=== PATIENT | female | born 1965 | race Caucasian/White ===

== ENCOUNTER 2017-09-16 10:06 | Inpatient (IN) | payer OTHER, MEDICAID ==
[~2017-09-16] VITALS: Ht 170.2 cm; Wt 115.2 kg
[~2017-09-16 10:06] MED LIST: ACTOS 45 MG45 MG PO; ANAFRANIL PO; ASPIR 8181 MG PO; BENTYL 20 MG TA20 M1 PO; BUTALB-APAP-CA1 EACH PO; CALCIUM 600 +1 EAC8 PO; CIPROFLOXACIN500 M1 PO; CRESTOR10 MG PO; DOXEPIN 25 MG C25 MG PO; EFFEXOR XR150 MG PO; FISH OIL 1,2001 EAC3 PO; FLAGYL500 MG PO; FLONASE 0.05%50 MCG NASAL; GEODON60 MG PO; IBUPROFEN 800800 M1 PO; IRON160 M1 PO; JANUMET 50-1,01 EACH PO; LIORESAL 10 MG10 MG PO; LOPID600 MG PO; MELATONIN 5 MG1 EAC1 PO; METFORMIN 500500 MG PO; MIDODRINE HCL10 MG PO; MOBIC15 MG PO; MULTIVITAMINS1 EAC7 PO; NORCO 10-325 T1 EACH PO; NORCO 5-325 TA1 EACH PO; PARAFON FORTE500 MG PO; PENICILLIN VK250 MG GT; PERCOCET 5-3251 EACH PO; PHENERGAN 25 MG25 M1 PO; PHENERGAN12.5 M2 RECTAL; POLYSPORIN OINT15 GM TP; PRILOSEC 20 MG20 MG PO; RISPERDAL 3 MG T3 M1 PO; SEROQUEL XR200 MG PO; SIMCOR PO; STARLIX60 MG PO; SUPER B COMPLE150 MG PO; TOPAMAX100 MG PO; TRAZODONE 150150 M1 PO; TRILEPTAL 300300 MG PO; TRILEPTAL600 MG PO; VISTARIL 25 MG25 M1 PO; VITAMIN E200 UNI4 PO; VITAMINC500 PO; XANAX XR2 MG PO; XANAX1 MG PO
[2017-09-16] MEDS ORDERED: ZANAFLEX2 MG PO (10:15)
[2017-09-16] MEDS ORDERED: FLAGYL500 MG PO (10:17)
[2017-09-16 10:55] LABS: ABSOLUTE EOSINOPHILS 0.1 thou/uL (0.0-0.7); ABSOLUTE LYMPHOCYTES 0.9 thou/uL (0.8-5.3); ABSOLUTE MONOCYTES 0.2 thou/uL (0.0-1.2); ABSOLUTE NEUTROPHILS 5.5 thou/uL (1.6-8.1); BASOPHILS 0.7 %; EOSINOPHILS 0.8 %; HEMATOCRIT 36.4 % (37.0-47.0); HEMOGLOBIN 12.2 gm/dL (12.0-15.0); LYMPHOCYTES 13.4 %; MCH 29.7 pg (26.0-34.0); MCHC 33.6 g/dL (28.0-37.0); MCV 88.2 fL (80.0-100.0); MONOCYTES 3.4 %; MPV 7.6 fl. (7.2-11.1); NUCLEATED RBCS 0 /100WBC; PLATELET COUNT* 180 thou/uL (150-400); POLYS 81.7 %; RBC 4.12 mil/uL (4.20-5.00); RDW-CV 13.8 % (10.5-14.5); WBC 6.8 thou/uL (4.0-11.0)
[2017-09-16 11:01] LABS: ANION GAP 7 mmol/L (7-16); BUN 10 mg/dL (7-18); CALCIUM 8.2 mg/dL (8.5-10.1); CHLORIDE 95 mmol/L (98-107); CO2 29 mmol/L (21-32); CREATININE 0.7 mg/dL (0.6-1.3); GLUCOSE 150 mg/dL (70-99); POTASSIUM 4.1 mmol/L (3.5-5.1); SODIUM 131 mmol/L (136-145)
[2017-09-16 11:11] LABS: ALBUMIN 3.4 g/dL (3.4-5.0); ALKALINE PHOSPHATASE 110 U/L (46-116); NT-PRO BRAIN NAT PEPTIDE 470 pg/mL (<300); SGOT 16 U/L (15-37); SGPT 16 U/L (30-65); TOTAL BILIRUBIN 0.3 mg/dL (<0.1-1.0); TOTAL PROTEIN 7.3 g/dL (6.4-8.2); TROPONIN-I LEVEL <0.06 ng/mL (<0.06)
[2017-09-16 11:22] LABS: BE 3.7 mmol/L (-2 to +3); HCO3 29.2 mmol/L (22.0-26.0); PCO2 48.3 mmHg (35.0-45.0)
[2017-09-16 11:24] LABS: PO2 54.2 mmHg (75.0-100.0)
[2017-09-16 14:00] LABS: INFLUENZA A ANTIGEN None Detected (None Detect); INFLUENZA B ANTIGEN None Detected (None Detect)
[2017-09-16 14:10] VITALS: BP 127/54
[2017-09-16 20:00] VITALS: BP 146/69
[2017-09-17] VITALS: BP 110/53
[2017-09-17 04:00] VITALS: BP 129/62
[2017-09-17 05:14] LABS: CALCIUM 7.8 mg/dL (8.5-10.1); CREATININE 0.6 mg/dL (0.6-1.3); MAGNESIUM 2.1 mg/dL (1.8-2.4); POTASSIUM 4.1 mmol/L (3.5-5.1)
[2017-09-17 05:18] LABS: ABSOLUTE LYMPHOCYTES 0.7 thou/uL (0.8-5.3); ABSOLUTE MONOCYTES 0.3 thou/uL (0.0-1.2); ABSOLUTE NEUTROPHILS 5.6 thou/uL (1.6-8.1); BASOPHILS 0.2 %; EOSINOPHILS 0.2 %; HEMATOCRIT 32.6 % (37.0-47.0); LYMPHOCYTES 10.5 %; MCHC 33.7 g/dL (28.0-37.0); MONOCYTES 4.3 %; MPV 7.6 fl. (7.2-11.1); NUCLEATED RBCS 0 /100WBC; PLATELET COUNT* 166 thou/uL (150-400); POLYS 84.8 %; RBC 3.66 mil/uL (4.20-5.00); RDW-CV 13.4 % (10.5-14.5); WBC 6.6 thou/uL (4.0-11.0)
[2017-09-17 08:30] VITALS: BP 143/73
[2017-09-17 09:47] LABS: BE 1.2 mmol/L (-2 to +3); HCO3 26.9 mmol/L (22.0-26.0); PCO2 47.2 mmHg (35.0-45.0); PO2 66.9 mmHg (75.0-100.0); pH 7.374 (7.340-7.450)
--- NOTE | 2017-09-17 14:12 | EKG ---
[place] [address] ELECTROCARDIOGRAM REPORT Name: ODILON ARMSTRONG Room: [address] ADM IN M.R.#: [id number] Admission: 09/16/17 Attend Phys: Trevor Segundo MD Discharge: Date of : 63 Report #: [id number] THIS REPORT FOR: //name// [facility] ED Test Date: 2017-09-16 Test Time: 10:18:19 Pat Name: ODILON NATHANIEL Department: Room: [facility] Gender: Patient Clerical Assistant: Arnulfo PEOPLES : 1965 Requested By: Delbert Haider Order Number: [id number] MD: Nitesh Cortez Measurements Intervals [place] Rate: 79 P: 70 [place]: 167 QRS: 54 QRSD: 101 T: 76 QT: 376 QTc: 432 Interpretive Statements Sinus rhythm Compared to ECG 01/07/2017 01:39:48 No significant changes Electronically Signed On 09-17-2017 14:12:46 PARKING ENFORCER by Nitesh Cortez [email or web address] <ELECTRONICALLY SIGNED> By: Nitesh Cortez MD, [facility] 09/17/17 1412 1018 1018 Nitesh Cortez MD, FACC /EPI
[2017-09-17 20:00] VITALS: BP 157/52
[2017-09-18 00:14] VITALS: BP 137/63
[2017-09-18 04:00] VITALS: BP 107/72
[2017-09-18 05:14] LABS: HEMATOCRIT 31.8 % (37.0-47.0); HEMOGLOBIN 10.9 gm/dL (12.0-15.0); MCH 29.4 pg (26.0-34.0); MCHC 34.3 g/dL (28.0-37.0); MCV 85.9 fL (80.0-100.0); MPV 7.4 fl. (7.2-11.1); NUCLEATED RBCS 0 /100WBC; PLATELET COUNT* 168 thou/uL (150-400); RDW-CV 13.4 % (10.5-14.5); WBC 7.2 thou/uL (4.0-11.0)
[2017-09-18 05:27] LABS: ALBUMIN 3.1 g/dL (3.4-5.0); CREATININE 0.6 mg/dL (0.6-1.3); POTASSIUM 4.4 mmol/L (3.5-5.1); TOTAL BILIRUBIN 0.3 mg/dL (<0.1-1.0); TOTAL PROTEIN 6.5 g/dL (6.4-8.2)
[2017-09-18 07:00] LABS: ABSOLUTE LYMPHOCYTES 0.7 thou/uL (0.8-5.3); ABSOLUTE MONOCYTES 0.1 thou/uL (0.0-1.2); ABSOLUTE NEUTROPHILS 6.3 thou/uL (1.6-8.1)
[2017-09-18 07:01] LABS: PLATELET ESTIMATE ADEQUATE; POLYCHROMASIA Occasional
[2017-09-18 08:00] VITALS: BP 149/76
[2017-09-18 11:30] VITALS: BP 167/84
[2017-09-18 16:22] VITALS: BP 157/70
[2017-09-18 20:00] VITALS: BP 146/71
[2017-09-19 00:51] VITALS: BP 146/67
[2017-09-19 04:00] VITALS: BP 144/68
[2017-09-19 04:56] LABS: ABSOLUTE EOSINOPHILS 0.1 thou/uL (0.0-0.7); ABSOLUTE LYMPHOCYTES 1.3 thou/uL (0.8-5.3); ABSOLUTE MONOCYTES 0.4 thou/uL (0.0-1.2); ABSOLUTE NEUTROPHILS 5.4 thou/uL (1.6-8.1); BASOPHILS 0.3 %; EOSINOPHILS 0.8 %; HEMATOCRIT 37.3 % (37.0-47.0); HEMOGLOBIN 12.8 gm/dL (12.0-15.0); LYMPHOCYTES 17.7 %; MCH 29.1 pg (26.0-34.0); MCHC 34.2 g/dL (28.0-37.0); MCV 85.2 fL (80.0-100.0); MPV 7.5 fl. (7.2-11.1); NUCLEATED RBCS 0 /100WBC; PLATELET COUNT* 206 thou/uL (150-400); POLYS 75.2 %; RBC 4.38 mil/uL (4.20-5.00); RDW-CV 13.4 % (10.5-14.5); WBC 7.1 thou/uL (4.0-11.0)
[2017-09-19 05:07] LABS: ALBUMIN 3.5 g/dL (3.4-5.0); CREATININE 0.5 mg/dL (0.6-1.3); MAGNESIUM 1.7 mg/dL (1.8-2.4); POTASSIUM 3.5 mmol/L (3.5-5.1); TOTAL BILIRUBIN 0.4 mg/dL (<0.1-1.0); TOTAL PROTEIN 7.2 g/dL (6.4-8.2)
[2017-09-19 07:50] VITALS: BP 133/63
[2017-09-19 12:46] VITALS: BP 158/81
[2017-09-19 16:00] VITALS: BP 148/71
[2017-09-19 20:00] VITALS: BP 149/76
[2017-09-20] VITALS: BP 134/58
[2017-09-20 04:00] VITALS: BP 117/57
[2017-09-20 08:00] VITALS: BP 126/63
[2017-09-20 11:30] VITALS: BP 131/59
[2017-09-20] MEDS ORDERED: PREDNISONE 10 M10 MG PO (14:26)
[2017-09-20] MEDS ORDERED: PROTONIX40 M1 PO (14:28)
[2017-09-20] MEDS ORDERED: LEVAQUIN 750 M750 MG PO (14:28)
[2017-09-20 14:35] VITALS: BP 131/59
--- NOTE | 2017-09-21 11:21 | CON ---
[address] [address] CONSULTATION Name: ODILON ARMSTRONG Room: [address] IN .R.#: [id number] Admission: 09/16/17 Attend Phys: Trevor Segundo MD Discharge: 09/20/17 Date of : 63 Report #: [id number] THIS REPORT FOR: //name// CC: Ayala Segundo REASON FOR CONSULTATION: Shortness of breath. HISTORY OF PRESENT ILLNESS: This is a 52-year-old female patient who had been a smoker since she was 11 years old. She follows with Dr. Manuel from [facility]. She has chronic respiratory failure secondary to COPD, on 3 liter oxygen at home, in addition to CPAP at night with oxygen. She presented to the hospital with 3 days history of feeling shortness of breath, cough, sputum production with wheezes. She denied any history of sick contact. She denied history of nasal discharge or obstruction. She denied history of sore throat. She is not sure if she had any fever or chills. She had no chest pain, no back pain, no change in bowel habits; however, she has have some lower abdominal pain. Upon hospitalization, she had to be placed on nonrebreather, and today, she is on several liters of oxygen. She still feels short of breath, although she is not producing much sputum, she feels congested. ALLERGIES: SULFA AND PROCHLORPERAZINE. HOME MEDICATIONS: She is on alprazolam, meloxicam, Prilosec, Topamax, Effexor, hydrocodone, midodrine, aspirin, melatonin, hydroxyzine, risperidone, and metronidazole. PAST MEDICAL HISTORY: Anxiety, panic disorder, bipolar disorder, OCD, borderline psychosis, diabetes mellitus, knee surgery for myalgia, IBS, diverticulitis, COPD, chronic respiratory failure, on home oxygen. SOCIAL HISTORY: She continues to smoke 3 packs of cigarettes per day and does not drink alcohol excessively, does not abuse drugs. REVIEW OF SYSTEMS: Twelve system review of the patient is negative other than as mentioned above. PHYSICAL EXAMINATION: VITAL SIGNS: On examination, she is on several liters oxygen with saturation more than 90%. Blood pressure 143/73, breathing 25 times a minute, temperature 36.4 GENERAL: Lying in bed, comfortable, speaks in full sentences. HEENT: Head normocephalic, atraumatic. Oral cavity, moist mucous membranes. Mallampati of 2-3. External ear looks healthy and normal. [place] [address] CONSULTATION Name: ODILON ARMSTRONG Room: [address]#: [id number] Admission: 09/16/17 Attend Phys: Trevor Segundo MD Discharge: 09/20/17 Date of : 63 Report #: [id number] NECK: Supple. No palpable lymph node. No palpable thyroid. Trachea is central. CHEST: Diminished air movement bilaterally, prolonged expiratory phase with wheezes, no tenderness, no deformities. HEART: S1, S2. No murmur, no gallop. ABDOMEN: Benign, soft, lax, nontender, positive bowel sounds, no masses felt. EXTREMITIES: Lower extremity, no edema. NEUROLOGIC: Moving 4 extremities spontaneously. No focal weakness. Cranial nerves grossly normal. MUSCULOSKELETAL: No deformities. No contracture. SKIN: Normal for age and race. LYMPHATICS: No palpable lymph node. LABORATORY DATA: White blood count 6.6, hemoglobin 11, platelet of 166. ABG 7.34/47/66, and this was done on 4-1/2 liters oxygen this morning. Her CT of the chest did not show PE, but showed extensive mediastinal lymphadenopathy. IMPRESSION: 1. Wltuj-wl-rquempv hypoxic respiratory failure. 2. Chronic obstructive pulmonary disease exacerbation. 3. Active smoker. 4. Mediastinal lymphadenopathy. PLAN: At this point, the patient will be on steroids, antibiotics, and she is also covered with antibiotics for her diverticulitis, schedule nebulization treatment. I did discuss with the patient, she is okay receiving steroids, although she was hesitant in the beginning, so I will reschedule steroids for her. Regarding the mediastinal lymphadenopathy, the patient follows with Dr. Manuel. She had been aware of it for at least 1-1/2 years. She had multiple sets of CT per her and she has a CT scan coming up soon. Also, she underwent bronchoscopy per the patient, she says she had been told that this has no malignancy. At this point, we will just get her over the acute decompensation, and she can continue to follow with Dr. Manuel as an outpatient. Thank you for the consult. <ELECTRONICALLY SIGNED> By: Maddy Donnelly MD 09/21/17 1121 1058 1341Dsydnie Donnelly MD /nt
== END 2017-09-20 15:29 | disposition home or self-care (01) | DRG 177 ==
LOC: M.ERS 10:06 → M.TBA-ER 13:24 → M.2W 13:24
PROVIDERS: Internal Medicine Critical Care Medicine; Physician Assistant; ADMIT Internal Medicine
DX: J15.6 Pneumonia due to other Gram-negative bacteria (principal); J96.21 Acute and chronic respiratory failure with hypoxia; J44.0 Chronic obstructive pulmonary disease with (acute) lower respiratory infection; J44.1 Chronic obstructive pulmonary disease with (acute) exacerbation; E22.2 Syndrome of inappropriate secretion of antidiuretic hormone; F41.0 Panic disorder [episodic paroxysmal anxiety]; J20.9 Acute bronchitis, unspecified; R59.1 Generalized enlarged lymph nodes; F31.9 Bipolar disorder, unspecified; E11.9 Type 2 diabetes mellitus without complications; F42.9 Obsessive-compulsive disorder, unspecified; M79.7 Fibromyalgia; K58.9 Irritable bowel syndrome, unspecified; F17.210 Nicotine dependence, cigarettes, uncomplicated; T58.91XA Toxic effect of carbon monoxide from unspecified source, accidental (unintentional), initial encounter; E66.01 Morbid (severe) obesity due to excess calories; Z68.39 Body mass index [BMI] 39.0-39.9, adult; Z71.6 Tobacco abuse counseling; Y92.89 Other specified places as the place of occurrence of the external cause; Z79.82 Long term (current) use of aspirin; Z79.899 Other long term (current) drug therapy; Z88.2 Allergy status to sulfonamides; Z88.8 Allergy status to other drugs, medicaments and biological substances

== ENCOUNTER → 2017-10-12 | Outpatient (CLI) | payer OTHER, MEDICAID ==
[~2017-10-12] MED LIST changes: +ACCUNEB SO1.25 MG/1 INH; +AMITRIPTYLINE100 MG PO; +ANTIOXIDANT FO1 EACH PO; +B COMPLEX SUBLI59 M1; +BENTYL 10 MG CA10 M1 PO; +CALCIUM 600 +1 EAC1 PO; +CARAFATE 1 GM TA1 G1 PO; +CEFUROXIME250 MG PO; +CO Q-10100 MG PO; +COENZYME Q10100 M2 PO; +CRESTOR20 MG PO; +CRESTOR5 MG PO; +DESYREL150 MG PO; +DIPHENHIST50 MG PO; +EFFEXOR 5050 MG/1 T1 PO; +EFFEXOR XR75 MG PO; +FISH OIL 1,001000 M2 PO; +FLAX OIL1000 MG PO; +HYDROXYZINE HCL25 M1 PO; +HYDROXYZINE HCL25 M2 PO; +JANUMET XR 1001 EACH PO; +JANUMET XR 50-1 EAC1 PO; +KEFLEX500 M1 PO; +LEVALBUTER1.25 MG/0. INH; +LEVAQUIN 750 M750 MG PO; +MAGOX 400400 MG PO; +MELATONIN5 M1 PO; +MIDODRINE HCL 55 M1 PO; +MOBIC7.5 MG PO; +ONDANSETRON HCL4 M2 PO; +PREDNISONE 10 M10 MG PO; +PREDNISONE 20 M20 M1 PO; +PREDNISONE50 MG PO; +PROTONIX40 M1 PO; +PULMICORT0.5 MG/22 INH; +RISPERIDONE ODT4 MG PO; +STIOLTO RESPIMAT4 GM; +STIOLTO RESPIMAT4 GM INH; +SUMATRIPTAN SUC50 MG PO; +SYNTHROID125 MC1 PO; +TOPAMAX50 MG PO; +TRAZODONE HCL100 MG PO; +UNICOMPLEX M TA1 TA1 PO; +VITAMIN D3400 UNIT PO; +ZANAFLEX2 MG PO; +ZANAFLEX4 M2 PO; +ZANAFLEX4 MG PO
--- NOTE | 2017-10-12 15:54 | 2DMMODE ---
[place] [address] 2 D/M-MODE ECHOCARDIOGRAM Name: ODILON ARMSTRONG Room: [facility]#: [id number] Admission: 10/12/17 Attend Phys: Zahra Reddy Discharge: Date of : 63 Date of Service: 10/12/17 1554 Report #: [id number] THIS REPORT FOR: //name// APPROVED REPORT Study performed: 10/12/2017 14:18:19 EXAM: Comprehensive 2D, Doppler, and color-flow Echocardiogram Patient Location: Out-Patient Status: routine BSA: 2.24 HR: 72 bpm BP: 120/62 mmHg Other Information Study Quality: Adequate Indications Congestive Heart Failure 2D Dimensions LVEF(%): 76.91 (>50%) IVSd: 11.72 (7-11mm) LVOT Diam: 20.12 (18-24mm) LVDd: 47.94 mm PWd: 8.83 (7-11mm) Ascending Ao: 28.57 (22-36mm) LVDs: 26.06 (25-40mm) Aortic Root: 25.89 mm Alvarez's LVEF: 76.91 % Volumes Left Atrial Volume (Systole) LA ESV Index: 12.30 mL/m2 Aortic Valve AoV Peak Mohsen.: 1.65 m/s AO Peak Gr.: 10.89 mmHg LVOT Max P.25 mmHg AO Mean Gr.: 5.28 mmHg LVOT Mean P.48 mmHg LVOT Max V: 1.44 m/s AO V2 VTI: 26.58 cm LVOT Mean V: 0.83 m/s AUGUSTA (VTI): 3.50 cm2 LVOT V1 VTI: 29.31 cm Mitral Valve E/A Ratio: 1.13 MV Decel. Time: 176.12 [place] [address] 2 D/M-MODE ECHOCARDIOGRAM Name: ODILON ARMSTRONG Room: [facility]#: [id number] Admission: 10/12/17 Attend Phys: Zahra Reddy Discharge: Date of : 63 Date of Service: 10/12/17 1554 Report #: [id number] MV E Max Mohsen.: 0.84 m/s MV PHT: 51.07 ms MVA (PHT): 4.31 cm2 TDI E/Lateral E': 7.64 E/Medial E': 10.50 Medial E' Mohsen.: 0.08 m/s Lateral E' Mohsen.: 0.11 m/s Pulmonary Valve PV Peak Mohsen.: 1.30 m/s PV Peak Gr.: 6.75 mmHg Tricuspid Valve TR Peak Gr.: 27.45 mmHg RVSP: 32.40 mmHg Left Ventricle The left ventricle is normal size. There is normal LV segmental wall motion. There is normal left ventricular wall thickness. Left ventricular systolic function is normal. LVEF is 60-65%. The left ventricular diastolic function is normal. Right Ventricle The right ventricle is normal size. The right ventricular systolic function is normal. Atria The left atrium size is normal. The right atrium size is normal. Aortic Valve The aortic valve is normal in structure. No aortic regurgitation is present. There is no aortic valvular stenosis. Mitral Valve The mitral valve is normal in structure. There is no mitral valve regurgitation noted. No evidence of mitral valve stenosis. Tricuspid Valve The tricuspid valve is normal in structure. Mild tricuspid regurgitation. The RVSP is __32.4 mmHg. Pulmonic Valve The pulmonary valve is normal in structure. There is no pulmonic valvular regurgitation. [place] [address] 2 D/M-MODE ECHOCARDIOGRAM Name: ODILON ARMSTRONG Room: [facility]#: [id number] Admission: 10/12/17 Attend Phys: Zahra Reddy Discharge: Date of : 63 Date of Service: 10/12/17 1554 Report #: [id number] The aortic root is normal in size. IVC is normal in size and collapses with >50% inspiration Pericardium There is no pericardial effusion. <Conclusion> The left ventricle is normal size. There is normal left ventricular wall thickness. Left ventricular systolic function is normal. LVEF is 60-65%. The left ventricular diastolic function is normal. Mild tricuspid regurgitation. The RVSP is __32.4 mmHg. <ELECTRONICALLY SIGNED> By: Corey Tello MD, FACC 10/12/17 1554 1554 1554 Corey Tello MD, FACC /INF
== END ==
LOC: M.CRD 10-05 14:00
DX: I07.1 Rheumatic tricuspid insufficiency (principal); Z86.79 Personal history of other diseases of the circulatory system

== ENCOUNTER 2017-12-06 11:41 | Emergency (ER) | payer OTHER, MEDICAID ==
[~2017-12-06] VITALS: Ht 170.2 cm; Wt 115.2 kg
[~2017-12-06 11:41] MED LIST changes: -ACCUNEB SO1.25 MG/1 INH; -AMITRIPTYLINE100 MG PO; -ANTIOXIDANT FO1 EACH PO; -B COMPLEX SUBLI59 M1; -BENTYL 10 MG CA10 M1 PO; -CALCIUM 600 +1 EAC1 PO; -CARAFATE 1 GM TA1 G1 PO; -CEFUROXIME250 MG PO; -CO Q-10100 MG PO; -COENZYME Q10100 M2 PO; -CRESTOR20 MG PO; -CRESTOR5 MG PO; -DESYREL150 MG PO; -DIPHENHIST50 MG PO; -EFFEXOR 5050 MG/1 T1 PO; -EFFEXOR XR75 MG PO; -FISH OIL 1,001000 M2 PO; -FLAX OIL1000 MG PO; -HYDROXYZINE HCL25 M1 PO; -HYDROXYZINE HCL25 M2 PO; -JANUMET XR 1001 EACH PO; -JANUMET XR 50-1 EAC1 PO; -KEFLEX500 M1 PO; -LEVALBUTER1.25 MG/0. INH; -MAGOX 400400 MG PO; -MELATONIN5 M1 PO; -MIDODRINE HCL 55 M1 PO; -MOBIC7.5 MG PO; -ONDANSETRON HCL4 M2 PO; -PREDNISONE 20 M20 M1 PO; -PREDNISONE50 MG PO; -PULMICORT0.5 MG/22 INH; -RISPERIDONE ODT4 MG PO; -STIOLTO RESPIMAT4 GM; -STIOLTO RESPIMAT4 GM INH; -SUMATRIPTAN SUC50 MG PO; -SYNTHROID125 MC1 PO; -TOPAMAX50 MG PO; -TRAZODONE HCL100 MG PO; -UNICOMPLEX M TA1 TA1 PO; -VITAMIN D3400 UNIT PO; -ZANAFLEX4 M2 PO; -ZANAFLEX4 MG PO
[2017-12-06] MEDS ORDERED: VISTARIL 25 MG25 M1 PO (12:05)
[2017-12-06] MEDS ORDERED: XANAX1 MG PO (12:06)
[2017-12-06] MEDS ORDERED: TRILEPTAL600 MG PO (12:08)
[2017-12-06] MEDS ORDERED: TRAZODONE 150150 M1 PO (12:10)
[2017-12-06] MEDS ORDERED: KEFLEX500 M1 PO (12:31)
[2017-12-06 12:43] VITALS: BP 136/75
== END 2017-12-06 12:45 | disposition home or self-care (01) ==
LOC: M.ERS 11:41
DX: L72.3 Sebaceous cyst (principal); J44.9 Chronic obstructive pulmonary disease, unspecified; M79.7 Fibromyalgia; E11.9 Type 2 diabetes mellitus without complications

== ENCOUNTER → 2017-12-16 | Outpatient (CLI) | payer OTHER, MEDICAID ==
[~2017-12-16] MED LIST changes: +ACCUNEB SO1.25 MG/1 INH; +AMITRIPTYLINE100 MG PO; +ANTIOXIDANT FO1 EACH PO; +B COMPLEX SUBLI59 M1; +BENTYL 10 MG CA10 M1 PO; +CALCIUM 600 +1 EAC1 PO; +CARAFATE 1 GM TA1 G1 PO; +CEFUROXIME250 MG PO; +CO Q-10100 MG PO; +COENZYME Q10100 M2 PO; +CRESTOR20 MG PO; +CRESTOR5 MG PO; +DESYREL150 MG PO; +DIPHENHIST50 MG PO; +EFFEXOR 5050 MG/1 T1 PO; +EFFEXOR XR75 MG PO; +FISH OIL 1,001000 M2 PO; +FLAX OIL1000 MG PO; +HYDROXYZINE HCL25 M1 PO; +HYDROXYZINE HCL25 M2 PO; +JANUMET XR 1001 EACH PO; +JANUMET XR 50-1 EAC1 PO; +KEFLEX500 M1 PO; +LEVALBUTER1.25 MG/0. INH; +LEVAQUIN 500 M500 M2 PO; +MAGOX 400400 MG PO; +MELATONIN5 M1 PO; +MIDODRINE HCL 55 M1 PO; +MOBIC7.5 MG PO; +ONDANSETRON HCL4 M2 PO; +PREDNISONE 20 M20 M1 PO; +PREDNISONE50 MG PO; +PULMICORT0.5 MG/22 INH; +RISPERIDONE ODT4 MG PO; +STIOLTO RESPIMAT4 GM; +STIOLTO RESPIMAT4 GM INH; +SUMATRIPTAN SUC50 MG PO; +SYNTHROID125 MC1 PO; +TOPAMAX50 MG PO; +TRAZODONE HCL100 MG PO; +UNICOMPLEX M TA1 TA1 PO; +VITAMIN D3400 UNIT PO; +ZANAFLEX4 M2 PO; +ZANAFLEX4 MG PO
[2017-12-16 13:31] LABS: CREATININE 0.7 mg/dL (0.6-1.3)
== END ==
LOC: M.CT 11-29 11:00 → M.LAB 12:47 → M.CT 14:00
PROVIDERS: Family Medicine
DX: N28.1 Cyst of kidney, acquired (principal)

== ENCOUNTER 2018-04-18 13:06 | Emergency (ER) | payer OTHER, MEDICAID ==
[~2018-04-18] VITALS: Ht 170.2 cm; Wt 109.8 kg
[~2018-04-18 13:06] MED LIST changes: -ACCUNEB SO1.25 MG/1 INH; -AMITRIPTYLINE100 MG PO; -ANTIOXIDANT FO1 EACH PO; -B COMPLEX SUBLI59 M1; -BENTYL 10 MG CA10 M1 PO; -CALCIUM 600 +1 EAC1 PO; -CARAFATE 1 GM TA1 G1 PO; -CEFUROXIME250 MG PO; -CO Q-10100 MG PO; -COENZYME Q10100 M2 PO; -CRESTOR20 MG PO; -CRESTOR5 MG PO; -DESYREL150 MG PO; -DIPHENHIST50 MG PO; -EFFEXOR 5050 MG/1 T1 PO; -EFFEXOR XR75 MG PO; -FISH OIL 1,001000 M2 PO; -FLAX OIL1000 MG PO; -HYDROXYZINE HCL25 M1 PO; -HYDROXYZINE HCL25 M2 PO; -JANUMET XR 1001 EACH PO; -JANUMET XR 50-1 EAC1 PO; -LEVALBUTER1.25 MG/0. INH; -LEVAQUIN 500 M500 M2 PO; -MAGOX 400400 MG PO; -MELATONIN5 M1 PO; -MIDODRINE HCL 55 M1 PO; -MOBIC7.5 MG PO; -ONDANSETRON HCL4 M2 PO; -PREDNISONE 20 M20 M1 PO; -PREDNISONE50 MG PO; -PULMICORT0.5 MG/22 INH; -RISPERIDONE ODT4 MG PO; -STIOLTO RESPIMAT4 GM; -STIOLTO RESPIMAT4 GM INH; -SUMATRIPTAN SUC50 MG PO; -SYNTHROID125 MC1 PO; -TOPAMAX50 MG PO; -TRAZODONE HCL100 MG PO; -UNICOMPLEX M TA1 TA1 PO; -VITAMIN D3400 UNIT PO; -ZANAFLEX4 M2 PO; -ZANAFLEX4 MG PO
[2018-04-18 13:35] LABS: ABSOLUTE LYMPHOCYTES 1.1 thou/uL (0.8-5.3); ABSOLUTE MONOCYTES 0.3 thou/uL (0.0-1.2); ABSOLUTE NEUTROPHILS 5.5 thou/uL (1.6-8.1); BASOPHILS 0.5 %; EOSINOPHILS 0.6 %; HEMATOCRIT 39.5 % (37.0-47.0); HEMOGLOBIN 13.6 gm/dL (12.0-15.0); LYMPHOCYTES 15.8 %; MCH 30.3 pg (26.0-34.0); MCHC 34.4 g/dL (28.0-37.0); MCV 88.1 fL (80.0-100.0); MONOCYTES 3.7 %; MPV 7.9 fl. (7.2-11.1); NUCLEATED RBCS 0 /100WBC; PLATELET COUNT* 156 thou/uL (150-400); POLYS 79.4 %; RBC 4.48 mil/uL (4.20-5.00); RDW-CV 14.4 % (10.5-14.5); WBC 6.9 thou/uL (4.0-11.0)
[2018-04-18 13:39] LABS: ANION GAP 6 mmol/L (7-16); BUN 9 mg/dL (7-18); CALCIUM 9.2 mg/dL (8.5-10.1); CHLORIDE 101 mmol/L (98-107); CO2 29 mmol/L (21-32); CREATININE 0.6 mg/dL (0.6-1.3); GLUCOSE 238 mg/dL (70-99); POTASSIUM 4.1 mmol/L (3.5-5.1); SODIUM 136 mmol/L (136-145)
[2018-04-18 13:50] LABS: ALBUMIN 3.4 g/dL (3.4-5.0); ALKALINE PHOSPHATASE 123 U/L (46-116); NT-PRO BRAIN NAT PEPTIDE 111 pg/mL (<300); SGOT 17 U/L (15-37); SGPT 20 U/L (30-65); TOTAL BILIRUBIN 0.3 mg/dL (<0.1-1.0); TOTAL PROTEIN 7.5 g/dL (6.4-8.2); TROPONIN-I LEVEL <0.06 ng/mL (<0.06)
--- NOTE | 2018-04-18 15:01 | EKG ---
[place] [address] ELECTROCARDIOGRAM REPORT Name: ODILON ARMSTRONG Room: [facility]#: [id number] Admission: 04/18/18 Attend Phys: Discharge: Date of : 63 Report #: [id number] THIS REPORT FOR: //name// [facility] ED Test Date: 2018-04-18 Test Time: 13:33:43 Pat Name: ODILON ARMSTRONG Department: Room: Gender: F Petrophysicist: : 1965 Requested By: Lety Rocha Order Number: [id number] MD: Nitesh Cortez Measurements Intervals [place] Rate: 74 P: 74 [place]: 181 QRS: 52 QRSD: 100 T: 81 QT: 389 QTc: 432 Interpretive Statements Sinus rhythm Compared to ECG 09/16/2017 10:18:19 No significant changes Electronically Signed On 04-18-2018 15:01:42 CDT by Nitesh Cortez [email or web address] <ELECTRONICALLY SIGNED> By: Nitesh Cortez MD, [facility] 04/18/18 1501 1333 1333 Nitesh Cortez MD, FACC /EPI
[2018-04-18] MEDS ORDERED: PREDNISONE 20 M20 M1 PO (15:40)
[2018-04-18] MEDS ORDERED: CEFUROXIME250 MG PO (15:40)
[2018-04-18 15:57] VITALS: BP 132/66
== END 2018-04-18 15:59 | disposition home or self-care (01) ==
LOC: M.ERS 13:06
PROVIDERS: Nurse Practitioner Family
DX: J44.1 Chronic obstructive pulmonary disease with (acute) exacerbation (principal); E11.9 Type 2 diabetes mellitus without complications; F41.0 Panic disorder [episodic paroxysmal anxiety]; F31.9 Bipolar disorder, unspecified; M19.90 Unspecified osteoarthritis, unspecified site; M79.7 Fibromyalgia; F17.210 Nicotine dependence, cigarettes, uncomplicated; Z88.2 Allergy status to sulfonamides; Z88.8 Allergy status to other drugs, medicaments and biological substances

== ENCOUNTER 2018-05-24 15:43 | Emergency (ER) | payer OTHER, MEDICAID ==
[~2018-05-24] VITALS: Ht 170.2 cm; Wt 109.8 kg
[~2018-05-24 15:43] MED LIST changes: +CEFUROXIME250 MG PO; +PREDNISONE 20 M20 M1 PO
[2018-05-24] MEDS ORDERED: JANUMET XR 1001 EACH PO (15:53)
[2018-05-24] MEDS ORDERED: AMITRIPTYLINE100 MG PO (15:53)
[2018-05-24] MEDS ORDERED: ZANAFLEX4 M2 PO (15:54)
[2018-05-24] MEDS ORDERED: NORCO 10-325 T1 EACH PO (15:55)
[2018-05-24] MEDS ORDERED: SYNTHROID125 MC1 PO (15:55)
[2018-05-24] MEDS ORDERED: CRESTOR20 MG PO (15:55)
[2018-05-24] MEDS ORDERED: PRILOSEC 20 MG20 MG PO (15:55)
[2018-05-24 16:00] LABS: ABSOLUTE BASOPHILS 0.1 thou/uL (0.0-0.2); ABSOLUTE EOSINOPHILS 0.1 thou/uL (0.0-0.7); ABSOLUTE LYMPHOCYTES 1.3 thou/uL (0.8-5.3); ABSOLUTE MONOCYTES 0.2 thou/uL (0.0-1.2); ABSOLUTE NEUTROPHILS 5.2 thou/uL (1.6-8.1); EOSINOPHILS 0.8 %; HEMATOCRIT 39.2 % (37.0-47.0); HEMOGLOBIN 13.1 gm/dL (12.0-15.0); LYMPHOCYTES 18.3 %; MCH 29.4 pg (26.0-34.0); MCHC 33.4 g/dL (28.0-37.0); MCV 87.9 fL (80.0-100.0); MONOCYTES 3.6 %; MPV 7.3 fl. (7.2-11.1); NUCLEATED RBCS 0 /100WBC; PLATELET COUNT* 209 thou/uL (150-400); POLYS 76.3 %; RBC 4.46 mil/uL (4.20-5.00); RDW-CV 14.3 % (10.5-14.5); WBC 6.9 thou/uL (4.0-11.0)
[2018-05-24 16:09] LABS: ANION GAP 6 mmol/L (7-16); BUN 14 mg/dL (7-18); CALCIUM 9.2 mg/dL (8.5-10.1); CHLORIDE 97 mmol/L (98-107); CO2 29 mmol/L (21-32); CREATININE 0.7 mg/dL (0.6-1.3); GLUCOSE 221 mg/dL (70-99); POTASSIUM 4.2 mmol/L (3.5-5.1); SODIUM 132 mmol/L (136-145)
[2018-05-24 16:12] LABS: APTT 30.7 Seconds (25.0-31.3); PROTIME 10.2 Seconds (9.20-11.50)
[2018-05-24 16:29] LABS: ALBUMIN 3.4 g/dL (3.4-5.0); ALKALINE PHOSPHATASE 116 U/L (46-116); CK-MB MASS 0.6 ng/mL (<0.5-3.6); LIPASE 128 U/L (73-393); MAGNESIUM 1.7 mg/dL (1.8-2.4); NT-PRO BRAIN NAT PEPTIDE 82 pg/mL (<300); SGOT 18 U/L (15-37); SGPT 16 U/L (30-65); TOTAL BILIRUBIN 0.2 mg/dL (<0.1-1.0); TOTAL PROTEIN 7.3 g/dL (6.4-8.2); TROPONIN-I LEVEL <0.06 ng/mL (<0.06)
[2018-05-24 18:11] VITALS: BP 113/54
--- NOTE | 2018-05-25 10:02 | EKG ---
[place] [address] ELECTROCARDIOGRAM REPORT Name: ODILON ARMSTRONG [id number] Admission: 05/24/18 Attend Phys: Discharge: 05/24/18 Date of : 63 Report #: [id number] THIS REPORT FOR: //name// [facility] ED Test Date: 2018-05-24 Test Time: 15:45:08 Pat Name: ODILON ARMSTRONG Department: Room: Gender: F Roof Bolter: DAYNE : 1965 Requested By: Parveen Melgoza Order Number: [id number] MD: Bravo Ambriz Measurements Intervals [place] Rate: 76 P: 73 [place]: 169 QRS: 50 QRSD: 97 T: 80 QT: 378 QTc: 426 Interpretive Statements Sinus rhythm nonspecific t wave changes Compared to ECG 04/18/2018 13:33:43 No significant changes Electronically Signed On 05-25-2018 10:02:13 CDT by Bravo Ambriz [email or web address] <ELECTRONICALLY SIGNED> By: Bravo Ambriz MD, [facility] 05/25/18 1002 1545 1545 Bravo Ambriz MD, FACC /EPI
--- NOTE | 2018-05-25 10:04 | EKG ---
[place] [address] ELECTROCARDIOGRAM REPORT Name: ODILON ARMSTRONG [id number] Admission: 05/24/18 Attend Phys: Discharge: 05/24/18 Date of : 63 Report #: [id number] THIS REPORT FOR: //name// [facility] ED Test Date: 2018-05-24 Test Time: 17:48:03 Pat Name: ODILON ARMSTRONG Department: Room: Gender: F Industrial Equipment Mechanic: Arnulfo PEOPLES : 1965 Requested By: Parveen Melgoza Order Number: [id number] MD: Bravo Ambriz Measurements Intervals [place] Rate: 67 P: 74 [place]: 179 QRS: 42 QRSD: 98 T: 77 QT: 403 QTc: 426 Interpretive Statements Sinus rhythm nonspecific st changes Probable left atrial enlargement Low voltage, precordial leads Electronically Signed On 05-25-2018 10:03:55 CDT by Bravo Ambriz [email or web address] <ELECTRONICALLY SIGNED> By: Bravo Ambriz MD, [facility] 05/25/18 1003 1748 1748 Bravo Ambriz MD, FACC /EPI
== END 2018-05-24 18:18 | disposition home or self-care (01) ==
LOC: M.ERS 15:43
PROVIDERS: Family Medicine
DX: R07.89 Other chest pain (principal); E11.9 Type 2 diabetes mellitus without complications; M79.1 Myalgia; J43.9 Emphysema, unspecified; M19.90 Unspecified osteoarthritis, unspecified site; Z88.5 Allergy status to narcotic agent; Z88.8 Allergy status to other drugs, medicaments and biological substances; F17.210 Nicotine dependence, cigarettes, uncomplicated

== ENCOUNTER 2018-06-05 18:40 | Emergency (ER) | payer OTHER, MEDICAID ==
[~2018-06-05] VITALS: Ht 170.2 cm; Wt 114.3 kg
[~2018-06-05 18:40] MED LIST changes: +AMITRIPTYLINE100 MG PO; +CRESTOR20 MG PO; +JANUMET XR 1001 EACH PO; +SYNTHROID125 MC1 PO; +ZANAFLEX4 M2 PO
[2018-06-05] MEDS ORDERED: EFFEXOR 5050 MG/1 T1 PO (18:52)
[2018-06-05] MEDS ORDERED: PULMICORT0.5 MG/22 INH (18:53)
[2018-06-05] MEDS ORDERED: STIOLTO RESPIMAT4 GM INH (18:53)
[2018-06-05] MEDS ORDERED: LEVALBUTER1.25 MG/0. INH (18:53)
[2018-06-05] MEDS ORDERED: BENTYL 10 MG CA10 M1 PO (18:54)
[2018-06-05] MEDS ORDERED: DESYREL150 MG PO (18:55)
[2018-06-05] MEDS ORDERED: XANAX1 MG PO (18:58)
[2018-06-05 19:24] LABS: ABSOLUTE BASOPHILS 0.1 thou/uL (0.0-0.2); ABSOLUTE LYMPHOCYTES 1.1 thou/uL (0.8-5.3); ABSOLUTE MONOCYTES 0.2 thou/uL (0.0-1.2); ABSOLUTE NEUTROPHILS 6.8 thou/uL (1.6-8.1); BASOPHILS 0.6 %; EOSINOPHILS 0.2 %; HEMATOCRIT 37.6 % (37.0-47.0); HEMOGLOBIN 12.9 gm/dL (12.0-15.0); LYMPHOCYTES 13.4 %; MCH 30.2 pg (26.0-34.0); MCHC 34.3 g/dL (28.0-37.0); MCV 88.2 fL (80.0-100.0); MONOCYTES 2.7 %; MPV 7.2 fl. (7.2-11.1); NUCLEATED RBCS 0 /100WBC; PLATELET COUNT* 169 thou/uL (150-400); POLYS 83.1 %; RBC 4.26 mil/uL (4.20-5.00); RDW-CV 13.6 % (10.5-14.5); WBC 8.3 thou/uL (4.0-11.0)
[2018-06-05 19:34] LABS: ANION GAP 6 mmol/L (7-16); BUN 13 mg/dL (7-18); CALCIUM 8.2 mg/dL (8.5-10.1); CHLORIDE 97 mmol/L (98-107); CO2 30 mmol/L (21-32); CREATININE 0.6 mg/dL (0.6-1.3); GLUCOSE 304 mg/dL (70-99); POTASSIUM 3.5 mmol/L (3.5-5.1); SODIUM 133 mmol/L (136-145)
[2018-06-05 19:35] LABS: PROTIME 10.1 Seconds (9.20-11.50)
[2018-06-05 19:45] LABS: ALBUMIN 3.3 g/dL (3.4-5.0); ALKALINE PHOSPHATASE 119 U/L (46-116); LIPASE 109 U/L (73-393); NT-PRO BRAIN NAT PEPTIDE 99 pg/mL (<300); SGOT 12 U/L (15-37); SGPT 12 U/L (30-65); TOTAL BILIRUBIN 0.2 mg/dL (<0.1-1.0); TOTAL PROTEIN 6.9 g/dL (6.4-8.2); TROPONIN-I LEVEL <0.06 ng/mL (<0.06)
[2018-06-05] MEDS ORDERED: PREDNISONE50 MG PO (22:06)
[2018-06-05 22:10] VITALS: BP 113/60
--- NOTE | 2018-06-06 10:52 | EKG ---
[place] [address] ELECTROCARDIOGRAM REPORT Name: ODILON ARMSTRONG [id number] Admission: 06/05/18 Attend Phys: Discharge: 06/05/18 Date of : 63 Report #: [id number] THIS REPORT FOR: //name// [facility] ED Test Date: 2018-06-05 Test Time: 19:15:17 Pat Name: ODILON ARMSTRONG Department: Room: Gender: F Manager Money: KRISTEL : 1965 Requested By: Daria Hernandez Order Number: [id number] MD: Bravo Ambriz Measurements Intervals [place] Rate: 79 P: 76 [place]: 190 QRS: 51 QRSD: 103 T: 86 QT: 375 QTc: 430 Interpretive Statements Sinus rhythm nonspecific st changes Consider left atrial enlargement Compared to ECG 05/24/2018 17:48:03 no change Electronically Signed On 06-06-2018 10:52:31 CDT by Bravo Ambriz [email or web address] <ELECTRONICALLY SIGNED> By: Bravo Ambriz MD, [facility] 06/06/18 1052 1915 14 Bravo Ambriz MD, FACC /EPI
== END 2018-06-05 22:10 | disposition home or self-care (01) ==
LOC: M.ERS 18:40
PROVIDERS: Emergency Medicine
DX: R06.00 Dyspnea, unspecified (principal); F41.0 Panic disorder [episodic paroxysmal anxiety]; F32.9 Major depressive disorder, single episode, unspecified; M79.7 Fibromyalgia; J44.9 Chronic obstructive pulmonary disease, unspecified; M19.90 Unspecified osteoarthritis, unspecified site; F17.210 Nicotine dependence, cigarettes, uncomplicated; Z88.2 Allergy status to sulfonamides; Z88.8 Allergy status to other drugs, medicaments and biological substances

== ENCOUNTER 2018-07-30 18:11 | Inpatient (IN) | payer OTHER, MEDICAID ==
[~2018-07-30] VITALS: Ht 172.7 cm; Wt 116.6 kg
[~2018-07-30 18:11] MED LIST changes: +BENTYL 10 MG CA10 M1 PO; +DESYREL150 MG PO; +EFFEXOR 5050 MG/1 T1 PO; +LEVALBUTER1.25 MG/0. INH; +PREDNISONE50 MG PO; +PULMICORT0.5 MG/22 INH; +STIOLTO RESPIMAT4 GM INH
[2018-07-30 18:19] VITALS: BP 151/67
[2018-07-30] MEDS ORDERED: XANAX1 MG PO ×3 (18:39→19:12)
[2018-07-30] MEDS ORDERED: SUMATRIPTAN SUC50 MG PO (18:48)
[2018-07-30] MEDS ORDERED: TOPAMAX50 MG PO (18:49)
[2018-07-30] MEDS ORDERED: MIDODRINE HCL 55 M1 PO (18:49)
[2018-07-30] MEDS ORDERED: TRILEPTAL600 MG PO ×2 (18:50)
[2018-07-30 18:51] LABS: HEMATOCRIT 39.5 % (37.0-47.0); HEMOGLOBIN 13.3 gm/dL (12.0-15.0); MCHC 33.7 g/dL (28.0-37.0); MPV 7.1 fl. (7.2-11.1); NUCLEATED RBCS 0 /100WBC; PLATELET COUNT* 157 thou/uL (150-400); RBC 4.59 mil/uL (4.20-5.00); RDW-CV 13.9 % (10.5-14.5); WBC 8.9 thou/uL (4.0-11.0)
[2018-07-30] MEDS ORDERED: ZANAFLEX4 MG PO (18:51)
[2018-07-30] MEDS ORDERED: PRILOSEC 20 MG20 MG PO (18:52)
[2018-07-30] MEDS ORDERED: CRESTOR5 MG PO (18:52)
[2018-07-30] MEDS ORDERED: MOBIC7.5 MG PO (18:52)
[2018-07-30] MEDS ORDERED: JANUMET XR 50-1 EAC1 PO (18:52)
[2018-07-30] MEDS ORDERED: HYDROXYZINE HCL25 M1 PO (18:53)
[2018-07-30] MEDS ORDERED: ASPIR 8181 MG PO (18:53)
[2018-07-30] MEDS ORDERED: HYDROXYZINE HCL25 M2 PO (18:54)
[2018-07-30 18:58] LABS: ANION GAP 10 mmol/L (7-16); BUN 9 mg/dL (7-18); CALCIUM 8.8 mg/dL (8.5-10.1); CHLORIDE 91 mmol/L (98-107); CO2 28 mmol/L (21-32); CREATININE 0.7 mg/dL (0.6-1.3); GLUCOSE 210 mg/dL (70-99); POTASSIUM 4.1 mmol/L (3.5-5.1); SODIUM 129 mmol/L (136-145)
[2018-07-30 19:00] LABS: BE 0.9 mmol/L (-2 to +3); HCO3 25.6 mmol/L (22.0-26.0); pH 7.413 (7.340-7.450)
[2018-07-30 19:01] LABS: PO2 57.1 mmHg (75.0-100.0)
[2018-07-30 19:01] LABS: APTT 37.3 Seconds (25.0-31.3)
[2018-07-30] MEDS ORDERED: RISPERIDONE ODT4 MG PO (19:07)
[2018-07-30 19:08] LABS: ABSOLUTE EOSINOPHILS 0.1 thou/uL (0.0-0.7); ABSOLUTE LYMPHOCYTES 0.3 thou/uL (0.8-5.3); ABSOLUTE MONOCYTES 0.3 thou/uL (0.0-1.2); ABSOLUTE NEUTROPHILS 8.3 thou/uL (1.6-8.1); PLATELET ESTIMATE ADEQUATE
[2018-07-30] MEDS ORDERED: DIPHENHIST50 MG PO (19:08)
[2018-07-30 19:09] LABS: ALBUMIN 3.7 g/dL (3.4-5.0); ALKALINE PHOSPHATASE 134 U/L (46-116); LIPASE 69 U/L (73-393); NT-PRO BRAIN NAT PEPTIDE 149 pg/mL (<300); SGOT 15 U/L (15-37); SGPT 17 U/L (30-65); TOTAL BILIRUBIN 0.3 mg/dL (<0.1-1.0); TOTAL PROTEIN 7.5 g/dL (6.4-8.2); TROPONIN-I LEVEL <0.06 ng/mL (<0.06)
[2018-07-30] MEDS ORDERED: TRAZODONE HCL100 MG PO (19:09)
[2018-07-30] MEDS ORDERED: MELATONIN5 M1 PO (19:10)
[2018-07-30] MEDS ORDERED: EFFEXOR XR75 MG PO (19:10)
[2018-07-30] MEDS ORDERED: NORCO 10-325 T1 EACH PO (19:12)
[2018-07-30] MEDS ORDERED: CARAFATE 1 GM TA1 G1 PO (19:12)
[2018-07-30] MEDS ORDERED: ONDANSETRON HCL4 M2 PO (19:13)
[2018-07-30] MEDS ORDERED: LEVALBUTER1.25 MG/0. INH (19:13)
[2018-07-30] MEDS ORDERED: ACCUNEB SO1.25 MG/1 INH (19:14)
[2018-07-30] MEDS ORDERED: PULMICORT0.5 MG/22 INH (19:14)
[2018-07-30] MEDS ORDERED: B COMPLEX SUBLI59 M1 (19:15)
[2018-07-30] MEDS ORDERED: UNICOMPLEX M TA1 TA1 PO (19:15)
[2018-07-30] MEDS ORDERED: STIOLTO RESPIMAT4 GM (19:15)
[2018-07-30] MEDS ORDERED: CALCIUM 600 +1 EAC1 PO (19:16)
[2018-07-30] MEDS ORDERED: MAGOX 400400 MG PO (19:16)
[2018-07-30] MEDS ORDERED: FISH OIL 1,001000 M2 PO (19:16)
[2018-07-30] MEDS ORDERED: VITAMINC500 PO (19:16)
[2018-07-30] MEDS ORDERED: COENZYME Q10100 M2 PO (19:17)
[2018-07-30] MEDS ORDERED: ANTIOXIDANT FO1 EACH PO (19:17)
[2018-07-30] MEDS ORDERED: CO Q-10100 MG PO (19:17)
[2018-07-30] MEDS ORDERED: VITAMIN D3400 UNIT PO (19:18)
[2018-07-30] MEDS ORDERED: FLAX OIL1000 MG PO (19:18)
[2018-07-30 19:49] VITALS: BP 124/61
[2018-07-30 19:56] LABS: INFLUENZA A ANTIGEN None Detected (None Detect); INFLUENZA B ANTIGEN None Detected (None Detect)
[2018-07-30 21:00] VITALS: BP 126/62
[2018-07-31 04:00] VITALS: BP 111/48
[2018-07-31 08:05] VITALS: BP 124/67
[2018-07-31 09:02] LABS: HEMATOCRIT 36.9 % (37.0-47.0); HEMOGLOBIN 12.3 gm/dL (12.0-15.0); MCH 28.9 pg (26.0-34.0); MCHC 33.4 g/dL (28.0-37.0); MCV 86.6 fL (80.0-100.0); MPV 7.3 fl. (7.2-11.1); NUCLEATED RBCS 0 /100WBC; PLATELET COUNT* 152 thou/uL (150-400); RBC 4.26 mil/uL (4.20-5.00); RDW-CV 14.1 % (10.5-14.5)
[2018-07-31 09:18] LABS: ANION GAP 8 mmol/L (7-16); BUN 11 mg/dL (7-18); CALCIUM 8.5 mg/dL (8.5-10.1); CHLORIDE 94 mmol/L (98-107); CO2 26 mmol/L (21-32); CREATININE 0.7 mg/dL (0.6-1.3); GLUCOSE 271 mg/dL (70-99); POTASSIUM 4.5 mmol/L (3.5-5.1); SODIUM 128 mmol/L (136-145); TROPONIN-I LEVEL <0.06 ng/mL (<0.06)
[2018-07-31 09:57] LABS: ABSOLUTE LYMPHOCYTES 0.2 thou/uL (0.8-5.3); ABSOLUTE MONOCYTES 0.1 thou/uL (0.0-1.2); ABSOLUTE NEUTROPHILS 5.6 thou/uL (1.6-8.1)
[2018-07-31 10:01] LABS: CLUMPED PLTS OCCASIONAL; PLATELET ESTIMATE ADEQUATE
[2018-07-31 10:29] LABS: HEMATOCRIT 36.1 % (37.0-47.0); HEMOGLOBIN 12.1 gm/dL (12.0-15.0); MCH 28.9 pg (26.0-34.0); MCHC 33.5 g/dL (28.0-37.0); MCV 86.3 fL (80.0-100.0); MPV 6.7 fl. (7.2-11.1); RBC 4.19 mil/uL (4.20-5.00); RDW-CV 14.2 % (10.5-14.5); WBC 5.5 thou/uL (4.0-11.0)
[2018-07-31 10:59] LABS: CALCIUM 8.4 mg/dL (8.5-10.1); CREATININE 0.7 mg/dL (0.6-1.3); POTASSIUM 4.4 mmol/L (3.5-5.1)
[2018-07-31 11:59] VITALS: BP 149/63
--- NOTE | 2018-07-31 14:22 | EKG ---
[place] [address] ELECTROCARDIOGRAM REPORT Name: ODILON ARMSTRONG Room: [address] ADM IN .R.#: [id number] Admission: 07/30/18 Attend Phys: Jhonny Moctezuma Discharge: Date of : 63 Report #: [id number] THIS REPORT FOR: //name// [facility] ED Test Date: 2018-07-30 Test Time: 18:24:16 Pat Name: ODILON ARMSTRONG Department: Room: [facility] Gender: F Space Systems Operations Manager: Arnulfo PEOPLES : 1965 Requested By: Meg Mejía Order Number: [id number] MD: Bravo Ambriz Measurements Intervals [place] Rate: 92 P: 58 [place]: 197 QRS: 50 QRSD: 98 T: 81 QT: 353 QTc: 437 Interpretive Statements Sinus rhythm nonspecific st changes Borderline prolonged [place] interval Compared to ECG 06/05/2018 19:15:17 no change Electronically Signed On 07-31-2018 14:22:39 LIFE SKILLS COORDINATOR by Bravo Ambriz [email or web address] <ELECTRONICALLY SIGNED> By: Bravo Ambriz MD, [facility] 07/31/18 1422 1824 182 Bravo Ambirz MD, [facility] /EPI
[2018-07-31 15:54] VITALS: BP 149/62
[2018-07-31 20:00] VITALS: BP 128/60
[2018-08-01] VITALS (7 sets, daily range): BP systolic 108–149; BP diastolic 55–81
[2018-08-01 02:05] LABS: GLYCOHEMOGLOBIN (HGB A1C) 8.1 % (4.8-5.6)
[2018-08-01 04:52] LABS: HEMATOCRIT 34.9 % (37.0-47.0); HEMOGLOBIN 11.7 gm/dL (12.0-15.0); MCH 28.9 pg (26.0-34.0); MCHC 33.5 g/dL (28.0-37.0); MCV 86.1 fL (80.0-100.0); MPV 7.1 fl. (7.2-11.1); RBC 4.06 mil/uL (4.20-5.00); WBC 6.1 thou/uL (4.0-11.0)
[2018-08-01 05:24] LABS: ALBUMIN 3.2 g/dL (3.4-5.0); CALCIUM 8.3 mg/dL (8.5-10.1); CREATININE 0.6 mg/dL (0.6-1.3); MAGNESIUM 1.7 mg/dL (1.8-2.4); POTASSIUM 4.3 mmol/L (3.5-5.1); TOTAL BILIRUBIN 0.2 mg/dL (<0.1-1.0); TOTAL PROTEIN 6.2 g/dL (6.4-8.2)
[2018-08-01 06:12] LABS: BE 1.3 mmol/L (-2 to +3); HCO3 26.9 mmol/L (22.0-26.0); PCO2 46.9 mmHg (35.0-45.0); PO2 70.5 mmHg (75.0-100.0); pH 7.377 (7.340-7.450)
--- NOTE | 2018-08-01 15:35 | 2DMMODE ---
[place] [address] 2 D/M-MODE ECHOCARDIOGRAM Name: ODILON ARMSTRONG Room: [address] ADM IN [facility]#: [id number] Admission: 07/30/18 Attend Phys: Andrés Cam Discharge: Date of : 63 Date of Service: 08/01/18 1535 Report #: [id number] THIS REPORT FOR: //name// APPROVED REPORT Study performed: 08/01/2018 10:38:57 EXAM: Comprehensive 2D, Doppler, and color-flow Echocardiogram Patient Location: In-Patient Room #: 211 Status: routine BSA: 2.27 HR: 73 bpm BP: 113/55 mmHg Rhythm: NSR Other Information Study Quality: Good Indications COPD Sepsis Chest Pain 2D Dimensions IVSd: 10.03 (7-11mm) LVOT Diam: 18.74 (18-24mm) LVDd: 52.39 mm PWd: 9.91 (7-11mm) Ascending Ao: 32.83 (22-36mm) LVDs: 33.73 (25-40mm) Aortic Root: 31.02 mm Volumes Left Atrial Volume (Systole) LA ESV Index: 37.60 mL/m2 Aortic Valve AoV Peak Mohsen.: 1.82 m/s AO Peak Gr.: 13.27 mmHg LVOT Max P.13 mmHg AO Mean Gr.: 7.14 mmHg LVOT Mean P.77 mmHg LVOT Max V: 1.51 m/s AO V2 VTI: 40.60 cm LVOT Mean V: 0.88 m/s AUGUSTA (VTI): 2.30 cm2 LVOT V1 VTI: 33.79 cm Mitral Valve E/A Ratio: 1.09 [place] [address] 2 D/M-MODE ECHOCARDIOGRAM Name: ODILON ARMSTRONG Room: [address] IN .R.#: [id number] Admission: 07/30/18 Attend Phys: Andrés Cam Discharge: Date of : 63 Date of Service: 08/01/18 1535 Report #: [id number] MV Decel. Time: 167.83 ms MV E Max Mohsen.: 1.15 m/s MV PHT: 48.67 ms MVA (PHT): 4.52 cm2 TDI E/Lateral E': 10.45 E/Medial E': 9.58 Medial E' Mohsen.: 0.12 m/s Lateral E' Mohsen.: 0.11 m/s Pulmonary Valve PV Peak Mohsen.: 1.27 m/s PV Peak Gr.: 6.49 mmHg Tricuspid Valve RAP Estimate: 5.00 mmHg TR Peak Gr.: 34.51 mmHg RVSP: 39.00 mmHg PA Pressure: 39.00 mmHg Left Ventricle The left ventricle is normal size. There is normal LV segmental wall motion. There is normal left ventricular wall thickness. Left ventricular systolic function is normal. The left ventricular ejection fraction is within the normal range. LVEF is 55-60%. The left ventricular diastolic function is normal. Right Ventricle The right ventricle is normal size. The right ventricular systolic function is normal. Atria Left atrium is mildly dilated. The right atrium size is normal. Aortic Valve The aortic valve is normal in structure. No aortic regurgitation is present. There is no aortic valvular stenosis. Mitral Valve The mitral valve is normal in structure. Trace mitral regurgitation. No evidence of mitral valve stenosis. Tricuspid Valve The tricuspid valve is normal in structure. Mild tricuspid regurgitation. estimate pa pressure 45 [place] [address] 2 D/M-MODE ECHOCARDIOGRAM Name: ODILON ARMSTRONG Room: [address] IN [facility]#: [id number] Admission: 07/30/18 Attend Phys: Andrés Cam Discharge: Date of : 63 Date of Service: 08/01/18 1535 Report #: [id number] The pulmonary valve is normal in structure. Trace pulmonic regurgitation. Great Vessels The aortic root is normal in size. IVC is normal in size and collapses >50% with inspiration. Pericardium There is no pericardial effusion. <Conclusion> LVEF is 55-60%. Left atrium is mildly dilated. Mild tricuspid regurgitation. estimate pa pressure 45 mm Hg <ELECTRONICALLY SIGNED> By: Bravo Ambriz MD, FACC 08/01/18 1535 1535 1535 Bravo Ambriz MD, FACC /INF
[2018-08-02 04:30] LABS: HEMATOCRIT 36.7 % (37.0-47.0); HEMOGLOBIN 12.5 gm/dL (12.0-15.0); MCHC 34.1 g/dL (28.0-37.0); MCV 85.2 fL (80.0-100.0); MPV 7.1 fl. (7.2-11.1); RBC 4.3 mil/uL (4.20-5.00); RDW-CV 14.3 % (10.5-14.5)
[2018-08-02 04:42] LABS: CALCIUM 8.6 mg/dL (8.5-10.1); CREATININE 0.5 mg/dL (0.6-1.3); MAGNESIUM 1.5 mg/dL (1.8-2.4); POTASSIUM 3.9 mmol/L (3.5-5.1)
[2018-08-02 07:45] VITALS: BP 128/61
[2018-08-02] MEDS ORDERED: PREDNISONE 10 M10 MG PO (09:03)
[2018-08-02] MEDS ORDERED: LEVAQUIN 500 M500 M2 PO (09:03)
== END 2018-08-02 09:30 | disposition home or self-care (01) | DRG 871 ==
LOC: M.ERS 18:11 → M.2W 19:17 → M.TBA-ER 19:17 → M.2W 07-31 00:39 → M.ORTHSURG 08-01 15:35
PROVIDERS: Family Medicine; Internal Medicine; Personal Emergency Response Attendant; ADMIT Internal Medicine
DX: A41.9 Sepsis, unspecified organism (principal); J15.6 Pneumonia due to other Gram-negative bacteria; J96.20 Acute and chronic respiratory failure, unspecified whether with hypoxia or hypercapnia; J44.1 Chronic obstructive pulmonary disease with (acute) exacerbation; J44.0 Chronic obstructive pulmonary disease with (acute) lower respiratory infection; F17.210 Nicotine dependence, cigarettes, uncomplicated; K58.9 Irritable bowel syndrome, unspecified; F41.0 Panic disorder [episodic paroxysmal anxiety]; M19.90 Unspecified osteoarthritis, unspecified site; M79.7 Fibromyalgia; E11.9 Type 2 diabetes mellitus without complications; R07.81 Pleurodynia; F31.9 Bipolar disorder, unspecified; J40 Bronchitis, not specified as acute or chronic; Z79.82 Long term (current) use of aspirin; Z79.899 Other long term (current) drug therapy; Z88.2 Allergy status to sulfonamides; Z88.8 Allergy status to other drugs, medicaments and biological substances; Z79.51 Long term (current) use of inhaled steroids

== ENCOUNTER 2018-08-06 14:31 | Emergency (ER) | payer OTHER, MEDICAID ==
[~2018-08-06] VITALS: Ht 172.7 cm; Wt 110.7 kg
[~2018-08-06 14:31] MED LIST changes: +ACCUNEB SO1.25 MG/1 INH; +ANTIOXIDANT FO1 EACH PO; +B COMPLEX SUBLI59 M1; +CALCIUM 600 +1 EAC1 PO; +CARAFATE 1 GM TA1 G1 PO; +CO Q-10100 MG PO; +COENZYME Q10100 M2 PO; +CRESTOR5 MG PO; +DIPHENHIST50 MG PO; +EFFEXOR XR75 MG PO; +FISH OIL 1,001000 M2 PO; +FLAX OIL1000 MG PO; +HYDROXYZINE HCL25 M1 PO; +HYDROXYZINE HCL25 M2 PO; +JANUMET XR 50-1 EAC1 PO; +LEVAQUIN 500 M500 M2 PO; +MAGOX 400400 MG PO; +MELATONIN5 M1 PO; +MIDODRINE HCL 55 M1 PO; +MOBIC7.5 MG PO; +ONDANSETRON HCL4 M2 PO; +RISPERIDONE ODT4 MG PO; +STIOLTO RESPIMAT4 GM; +SUMATRIPTAN SUC50 MG PO; +TOPAMAX50 MG PO; +TRAZODONE HCL100 MG PO; +UNICOMPLEX M TA1 TA1 PO; +VITAMIN D3400 UNIT PO; +ZANAFLEX4 MG PO
[2018-08-06 15:14] LABS: ABSOLUTE LYMPHOCYTES 0.5 thou/uL (0.8-5.3); ABSOLUTE MONOCYTES 0.1 thou/uL (0.0-1.2); ABSOLUTE NEUTROPHILS 1.8 thou/uL (1.6-8.1); BASOPHILS 0.3 %; HEMOGLOBIN 13.6 gm/dL (12.0-15.0); LYMPHOCYTES 19.9 %; MCH 28.9 pg (26.0-34.0); MCV 84.9 fL (80.0-100.0); MONOCYTES 5.8 %; MPV 7.1 fl. (7.2-11.1); NUCLEATED RBCS 0 /100WBC; PLATELET COUNT* 111 thou/uL (150-400); RBC 4.71 mil/uL (4.20-5.00); RDW-CV 14.1 % (10.5-14.5); WBC 2.4 thou/uL (4.0-11.0)
[2018-08-06 15:25] LABS: CREATININE 0.7 mg/dL (0.6-1.3); POTASSIUM 3.7 mmol/L (3.5-5.1)
[2018-08-06 15:26] LABS: PROTIME 10.2 Seconds (9.20-11.50)
[2018-08-06 15:30] LABS: ALBUMIN 3.5 g/dL (3.4-5.0); TOTAL BILIRUBIN 0.2 mg/dL (<0.1-1.0); TOTAL PROTEIN 6.9 g/dL (6.4-8.2)
[2018-08-06 16:00] VITALS: BP 121/49
== END 2018-08-06 16:00 | disposition home or self-care (01) ==
LOC: M.ERS 14:31
PROVIDERS: Family Medicine
DX: E11.9 Type 2 diabetes mellitus without complications (principal); F41.0 Panic disorder [episodic paroxysmal anxiety]; M79.7 Fibromyalgia; K58.9 Irritable bowel syndrome, unspecified; J44.9 Chronic obstructive pulmonary disease, unspecified; M19.90 Unspecified osteoarthritis, unspecified site; F17.210 Nicotine dependence, cigarettes, uncomplicated; Z88.2 Allergy status to sulfonamides; Z88.8 Allergy status to other drugs, medicaments and biological substances

== ENCOUNTER 2018-11-13 14:34 | Emergency (ER) | payer OTHER, MEDICAID ==
[~2018-11-13] VITALS: Ht 172.7 cm; Wt 113.4 kg
[2018-11-13] MEDS ORDERED: TRILOGY PO (14:52)
[2018-11-13] MEDS ORDERED: COZAAR 25 MG TA25 M2 PO (14:53)
[2018-11-13] MEDS ORDERED: LANTUS100 UNIT/M SUBQ (14:53)
[2018-11-13] MEDS ORDERED: HUMALOG100 UNIT/1 SUBQ (14:53)
[2018-11-13] MEDS ORDERED: DEPAKOTE 250MG250 M1 PO (14:54)
[2018-11-13 14:55] LABS: URINE BLOOD NEGATIVE (Negative); URINE CLARITY CLEAR; URINE COLOR YELLOW; URINE GLUCOSE-RANDOM NEGATIVE (Negative); URINE KETONES TRACE (Negative); URINE LEUKOCYTES-REFLEX NEGATIVE (Negative); URINE NITRITE-REFLEX NEGATIVE (Negative); URINE PROTEIN NEGATIVE (Negative); URINE SPECIFIC GRAVITY >= 1.030 (1.005-1.030); URINE UROBILINOGEN 0.2 E.U./dl (0.2-1.0)
[2018-11-13 14:56] LABS: ICTOTEST (BILI CONFIRMATORY) Negative (Negative); URINE BILIRUBIN 1+ (Negative)
[2018-11-13 15:04] LABS: ABSOLUTE BASOPHILS 0.1 thou/uL (0.0-0.2); ABSOLUTE LYMPHOCYTES 1.3 thou/uL (0.8-5.3); ABSOLUTE MONOCYTES 0.3 thou/uL (0.0-1.2); ABSOLUTE NEUTROPHILS 5.5 thou/uL (1.6-8.1); BASOPHILS 1.2 %; EOSINOPHILS 0.6 %; HEMATOCRIT 40.8 % (37.0-47.0); LYMPHOCYTES 17.5 %; MCH 29.8 pg (26.0-34.0); MCHC 34.4 g/dL (28.0-37.0); MCV 86.6 fL (80.0-100.0); MONOCYTES 4.6 %; MPV 7.1 fl. (7.2-11.1); NUCLEATED RBCS 0 /100WBC; PLATELET COUNT* 197 thou/uL (150-400); POLYS 76.1 %; RBC 4.71 mil/uL (4.20-5.00); RDW-CV 14.4 % (10.5-14.5); WBC 7.2 thou/uL (4.0-11.0)
[2018-11-13 15:09] LABS: BACTERIA-REFLEX None Seen /HPF (None Seen); CASTS None Seen /LPF (None Seen); CRYSTALS None Seen /LPF (None Seen); SQUAMOUS 0-3 Few /LPF (0-3); URINE RBC 0-2 Rare /HPF (0-2); URINE WBC-REFLEX 0-5 Rare /HPF (0-5)
[2018-11-13 15:31] LABS: ALBUMIN 3.6 g/dL (3.4-5.0); ALKALINE PHOSPHATASE 120 U/L (46-116); ANION GAP 7 mmol/L (7-16); BUN 16 mg/dL (7-18); CALCIUM 9.1 mg/dL (8.5-10.1); CHLORIDE 100 mmol/L (98-107); CO2 28 mmol/L (21-32); CREATININE 0.7 mg/dL (0.6-1.3); GLUCOSE 130 mg/dL (70-99); LIPASE 99 U/L (73-393); NT-PRO BRAIN NAT PEPTIDE 17 pg/mL (<300); SGOT 15 U/L (15-37); SGPT 13 U/L (30-65); SODIUM 135 mmol/L (136-145); TOTAL BILIRUBIN 0.1 mg/dL (<0.1-1.0); TOTAL PROTEIN 7.3 g/dL (6.4-8.2); TROPONIN-I LEVEL <0.06 ng/mL (<0.06)
[2018-11-13 15:35] LABS: AMP/METHAMP Negative (Negative); BARBITURATES Negative (Negative); BENZODIAZEPINES POSITIVE (Negative); COCAINE Negative (Negative); METHADONE Negative (Negative); OPIATES POSITIVE (Negative); PCP Negative (Negative); THC Negative (Negative)
[2018-11-13 15:57] VITALS: BP 135/70
--- NOTE | 2018-11-14 15:54 | EKG ---
[place] [address] ELECTROCARDIOGRAM REPORT Name: ODILON ARMSTRONG Room: [facility]#: [id number] Admission: 11/13/18 Attend Phys: Discharge: 11/13/18 Date of : 63 Report #: [id number] THIS REPORT FOR: //name// [facility] ED Test Date: 2018-11-13 Test Time: 14:47:30 Pat Name: ODILON ARMSTRONG Department: Room: Gender: F Evening Anchor: MARIELENA : 1965 Requested By: Meg Emery Order Number: [id number] MD: Nitesh Cortez Measurements Intervals [place] Rate: 83 P: 77 [place]: 154 QRS: 34 QRSD: 98 T: 82 QT: 350 QTc: 412 Interpretive Statements Sinus rhythm Low voltage, precordial leads Compared to ECG 07/30/2018 18:24:16 Low QRS voltage now present ST (T wave) deviation no longer present Electronically Signed On 11-14-2018 15:53:45 BOOKSEAMER BLINDSTITCH by Nitesh Cortez [email or web address] <ELECTRONICALLY SIGNED> By: Nitesh Cortez MD, [facility] 11/14/18 1553 1447 1447 Nitesh Cortez MD, [facility] /EPI
== END 2018-11-13 15:57 | disposition home or self-care (01) ==
LOC: M.ERS 14:34
PROVIDERS: Physician Assistant
DX: R25.1 Tremor, unspecified (principal); R53.1 Weakness; F41.0 Panic disorder [episodic paroxysmal anxiety]; E11.9 Type 2 diabetes mellitus without complications; M79.7 Fibromyalgia; K58.9 Irritable bowel syndrome, unspecified; J44.9 Chronic obstructive pulmonary disease, unspecified; M19.90 Unspecified osteoarthritis, unspecified site; F17.210 Nicotine dependence, cigarettes, uncomplicated; Z88.2 Allergy status to sulfonamides; Z88.8 Allergy status to other drugs, medicaments and biological substances; Z79.4 Long term (current) use of insulin; Z79.899 Other long term (current) drug therapy

== ENCOUNTER 2019-10-07 10:04 | Emergency (ER) | payer OTHER, MEDICAID ==
[~2019-10-07] VITALS: Ht 170.2 cm; Wt 109.8 kg
[~2019-10-07 10:04] MED LIST changes: +COZAAR 25 MG TA25 M2 PO; +DEPAKOTE 250MG250 M1 PO; +HUMALOG100 UNIT/1 SUBQ; +LANTUS100 UNIT/M SUBQ; +TRILOGY PO
[2019-10-07 10:35] LABS: HEMATOCRIT 40.7 % (37.0-47.0); HEMOGLOBIN 13.8 gm/dL (12.0-15.0); MCH 29.4 pg (26.0-34.0); MCHC 33.9 g/dL (28.0-37.0); MCV 86.8 fL (80.0-100.0); MPV 8.3 fl. (7.2-11.1); NUCLEATED RBCS 0 /100WBC; PLATELET COUNT* 149 thou/uL (150-400); RBC 4.69 mil/uL (4.20-5.00); RDW-CV 15.2 % (10.5-14.5); WBC 7.2 thou/uL (4.0-11.0)
[2019-10-07 10:44] LABS: CALCIUM 8.3 mg/dL (8.5-10.1); CREATININE 0.8 mg/dL (0.6-1.3)
[2019-10-07 10:47] LABS: APTT 33.4 Seconds (25.0-31.3); PROTIME 10.5 Seconds (9.20-11.50)
[2019-10-07 10:58] LABS: ALBUMIN 3.5 g/dL (3.4-5.0); CK-MB MASS 0.5 ng/mL (<0.5-3.6); MAGNESIUM 1.7 mg/dL (1.8-2.4); TOTAL BILIRUBIN 0.3 mg/dL (<0.1-1.0); TOTAL PROTEIN 7.7 g/dL (6.4-8.2)
[2019-10-07 11:12] LABS: ABSOLUTE LYMPHOCYTES 0.5 thou/uL (0.8-5.3); ABSOLUTE MONOCYTES 0.1 thou/uL (0.0-1.2); ABSOLUTE NEUTROPHILS 6.6 thou/uL (1.6-8.1); ANISOCYTOSIS 1+; PLATELET ESTIMATE DECREASED; POIKILOCYTOSIS 1+
[2019-10-07 11:37] VITALS: BP 112/59
--- NOTE | 2019-10-08 16:46 | EKG ---
[place] [address] ELECTROCARDIOGRAM REPORT Name: ODILON ARMSTRONG Room: [facility]#: [id number] Admission: 10/07/19 Attend Phys: Discharge: 10/07/19 Date of : 63 Report #: [id number] THIS REPORT FOR: //name// [facility] ED Test Date: 2019-10-07 Test Time: 10:09:16 Pat Name: ODILON ARMSTRONG Department: Room: Gender: F Cigar Head Perforator: VIRGILIO : 1965 Requested By: Parveen Melgoza Order Number: [id number] MD: Corey Tello Measurements Intervals [place] Rate: 85 P: 73 [place]: 154 QRS: 53 QRSD: 106 T: 70 QT: 343 QTc: 408 Interpretive Statements Sinus rhythm Baseline wander in lead(s) V1,V3 Compared to ECG 11/13/2018 14:47:30 No significant changes Electronically Signed On 10-08-2019 16:45:46 AVIATION TECHNICIAN by Corey Tello [email or web address] <ELECTRONICALLY SIGNED> By: Corey Tello MD, [facility] 10/08/19 1645 D: 019 08 Corey Tello MD, FACC /EPI
== END 2019-10-07 11:38 | disposition home or self-care (01) ==
LOC: M.ERS 10:04
PROVIDERS: Family Medicine
DX: R07.89 Other chest pain (principal); M79.7 Fibromyalgia; M19.90 Unspecified osteoarthritis, unspecified site; J44.9 Chronic obstructive pulmonary disease, unspecified; K58.9 Irritable bowel syndrome, unspecified; E11.9 Type 2 diabetes mellitus without complications; F17.210 Nicotine dependence, cigarettes, uncomplicated; Z79.4 Long term (current) use of insulin; Z88.2 Allergy status to sulfonamides; Z88.8 Allergy status to other drugs, medicaments and biological substances

== ENCOUNTER 2020-11-08 14:04 | Emergency (ER) | payer OTHER, MEDICAID ==
[~2020-11-08] VITALS: Ht 172.7 cm; Wt 113.0 kg
[2020-11-08] MEDS ORDERED: MAXALT10 MG PO (14:18)
[2020-11-08] MEDS ORDERED: LINZESS72 MCG PO (14:18)
[2020-11-08 14:50] LABS: HEMATOCRIT 39.8 % (37.0-47.0); MCHC 32.6 g/dL (28.0-37.0); MCV 85.9 fL (80.0-100.0); MPV 7.9 fl. (7.2-11.1); NUCLEATED RBCS 0 /100WBC; PLATELET COUNT* 155 thou/uL (150-400); RBC 4.64 mil/uL (4.20-5.00); WBC 8.2 thou/uL (4.0-11.0)
[2020-11-08 14:58] LABS: CALCIUM 8.9 mg/dL (8.5-10.1); CREATININE 0.7 mg/dL (0.6-1.3); POTASSIUM 4.3 mmol/L (3.5-5.1)
[2020-11-08 15:09] LABS: ALBUMIN 3.3 g/dL (3.4-5.0); TOTAL BILIRUBIN 0.2 mg/dL (<0.1-1.0); TOTAL PROTEIN 6.8 g/dL (6.4-8.2)
[2020-11-08 15:14] LABS: ABSOLUTE LYMPHOCYTES 1.3 thou/uL (0.8-5.3); ABSOLUTE NEUTROPHILS 6.9 thou/uL (1.6-8.1); PLATELET ESTIMATE ADEQUATE
[2020-11-08] MEDS ORDERED: PREDNISONE 20 M20 MG PO (15:59)
[2020-11-08] MEDS ORDERED: AUGMENTIN 500-1 EACH PO (15:59)
[2020-11-08 16:15] VITALS: BP 140/73
--- NOTE | 2020-11-08 16:49 | EKG ---
[place] [address] ELECTROCARDIOGRAM REPORT Name: ODILON ARMSTRONG Room: [facility]#: [id number] Admission: 11/08/20 Attend Phys: Discharge: 11/08/20 Date of : 63 Date of Service: 11/08/20 1431 Report #: [id number] THIS REPORT FOR: //name// [facility] ED Test Date: 2020-11-08 Test Time: 14:31:11 Pat Name: ODILON NATHANIEL Department: Room: Gender: Window Trimmer: [facility] : 1965 Requested By: Valery Sharif Order Number: [id number] MD: Nitesh Cortez Measurements Intervals [place] Rate: 87 P: 82 PA: 146 QRS: 61 QRSD: 94 T: 80 QT: 356 QTc: 429 Interpretive Statements Sinus rhythm Low voltage, precordial leads Compared to ECG 10/07/2019 10:09:16 Low QRS voltage now present Electronically Signed On 11-08-2020 16:48:58 CYCLE REPAIRER by Nitesh Cortez [email or web address] <ELECTRONICALLY SIGNED> By: Nitesh Cortez MD, [facility] 11/08/20 1648 1431 1431 Nitesh Cortez MD, [facility] /EPI
== END 2020-11-08 16:16 | disposition home or self-care (01) ==
LOC: M.ERS 14:04
PROVIDERS: Physician Assistant
DX: J44.1 Chronic obstructive pulmonary disease with (acute) exacerbation (principal); R09.02 Hypoxemia; Z20.822 Contact with and (suspected) exposure to COVID-19; E11.9 Type 2 diabetes mellitus without complications; M79.7 Fibromyalgia; M19.90 Unspecified osteoarthritis, unspecified site; K58.9 Irritable bowel syndrome, unspecified; F17.210 Nicotine dependence, cigarettes, uncomplicated; Z88.2 Allergy status to sulfonamides; Z88.8 Allergy status to other drugs, medicaments and biological substances

== ENCOUNTER 2020-12-05 18:24 | Inpatient (IN) | payer OTHER, MEDICAID ==
[~2020-12-05] VITALS: Ht 172.7 cm; Wt 105.2 kg
[~2020-12-05 18:24] MED LIST changes: +AUGMENTIN 500-1 EACH PO; +LINZESS72 MCG PO; +MAXALT10 MG PO; +PREDNISONE 20 M20 MG PO
[2020-12-05 18:28] VITALS: BP 124/57
[2020-12-05 18:49] LABS: ABSOLUTE BASOPHILS 0.1 thou/uL (0.0-0.2); ABSOLUTE LYMPHOCYTES 1.6 thou/uL (0.8-5.3); ABSOLUTE MONOCYTES 0.3 thou/uL (0.0-1.2); ABSOLUTE NEUTROPHILS 6.7 thou/uL (1.6-8.1); BASOPHILS 0.6 %; EOSINOPHILS 0.2 %; HEMATOCRIT 41.7 % (37.0-47.0); HEMOGLOBIN 13.7 gm/dL (12.0-15.0); MCH 28.2 pg (26.0-34.0); MCV 85.7 fL (80.0-100.0); MPV 7.7 fl. (7.2-11.1); NUCLEATED RBCS 0 /100WBC; PLATELET COUNT* 193 thou/uL (150-400); POLYS 77.2 %; RBC 4.86 mil/uL (4.20-5.00); RDW-CV 15.4 % (10.5-14.5); WBC 8.7 thou/uL (4.0-11.0)
[2020-12-05 19:01] LABS: CALCIUM 9.1 mg/dL (8.5-10.1); CREATININE 0.8 mg/dL (0.6-1.3); POTASSIUM 3.9 mmol/L (3.5-5.1)
[2020-12-05 19:06] LABS: ALBUMIN 3.6 g/dL (3.4-5.0); TOTAL BILIRUBIN 0.2 mg/dL (<0.1-1.0); TOTAL PROTEIN 7.4 g/dL (6.4-8.2)
[2020-12-05 21:45] VITALS: BP 129/59
[2020-12-05 22:03] VITALS: BP 135/68
[2020-12-05] MEDS ORDERED: XANAX1 MG PO (23:25)
[2020-12-05] MEDS ORDERED: XANAX 0.5 MG0.5 M1 PO (23:25)
[2020-12-05] MEDS ORDERED: DEPAKOTE500 MG PO (23:28)
[2020-12-05] MEDS ORDERED: RISPERDAL 3 MG T3 M1 PO (23:32)
[2020-12-05] MEDS ORDERED: TRAZODONE HCL100 MG PO (23:32)
[2020-12-05] MEDS ORDERED: TOPAMAX100 MG PO (23:34)
[2020-12-05] MEDS ORDERED: EFFEXOR XR150 MG PO (23:35)
[2020-12-05] MEDS ORDERED: BUSPIRONE HCL15 MG PO (23:41)
[2020-12-05] MEDS ORDERED: DIPHENHIST50 MG PO (23:42)
[2020-12-05] MEDS ORDERED: SEROQUEL 50 MG50 M1 PO (23:43)
[2020-12-06] MEDS ORDERED: ALPRAZOLAM XR2 MG PO (01:24)
--- NOTE | 2020-12-06 06:51 | NUR ---
Admit at 2144. She is alert and oriented x 4 but has anxiety and agoraphobia. She had failed outpatient treatment for COPD exacerbation. She does have coarse sounding lungs and wheezes. She is coughing and on 4L n/c,she wears home O2 at 2L n/c. Her sister needs to be at bedside because of her anxiety. She is up with stand by assist but is using bedside commode at this time. She did have large BM this am.
[2020-12-06 07:30] VITALS: BP 157/78
--- NOTE | 2020-12-06 09:30 | NUR ---
PT.IN BED. WAS PLEASANT. SHE SAID HER SISTER LIVES WITH HER. SISTERM HAS BEEN STAYING AT HOSPITAL WITH PT.TO HELP WITH PTS ANXIETY. PT.HAS NEBULIZER,HOME O2 AND CPAP THROUGH [facility]. SHE SAID SHE DOESN'T FEEL THE CPAP WORKS RIGHT BECAUSE IT DOES NOT KEEP HER O2 LEVELS UP. CM WILL CALL [facility] TO DISCUSS. SHE IS INDEPENDENT. DOESN'T LIKE TO GO OUT A LOT. SISTER IS SUPPORTIVE. PT.KEPT MOVING HER LEG IF RESTLESS. SHE SAID SHE SEES A PSYCHIATRIST. HER NAME IS . PT.DOES NOT WANT HOME HEALTH AT DISCHARGE UNLESS ABSOLUTELY NEEDED.
[2020-12-06 16:00] VITALS: BP 152/71
--- NOTE | 2020-12-06 17:38 | NUR ---
PT ALERT AND ORIENTED. PT STILL REMAINS ANXIOUS. PT HAS REGULAR POP AND CANDY AT BEDSIDE. EDUCATED ON NEEDING TO REDUCE SUGAR AND CARBS. PT STILL GETS SOA WITH EXERTION. STEADY UP TO BEDSIDE COMMODE WITH ASSIST. SISTER REMAINS IN ROOM WITH PATIENT. PT STATES SHE TAKES RIZATRIPTAN FOR MIGRAINES, BUT IT IS NOT AVAILABLE AT HOSPITAL PHARMACY. BS MANAGED WITH INSULIN. DENIES HEADACHE AT THIS TIME. REMAINS ON 3L PER NC. WILL CONTINUE TO MONITOR.
--- NOTE | 2020-12-06 18:30 | NUR ---
PT STATES NICOTINE PATCH FELL OFF RIGHT ARM. NOT FOUND IN BED. NEW NICOTINE PATCH PLACED ON LEFT ARM.
[2020-12-06] MEDS ORDERED: JANUMET 50-1,01 EACH PO (18:51)
[2020-12-06] MEDS ORDERED: JANUMET XR 50-1 EACH PO (18:52)
[2020-12-06 20:06] VITALS: BP 143/71
[2020-12-07 03:24] LABS: HEMATOCRIT 37.6 % (37.0-47.0); MCH 27.6 pg (26.0-34.0); MCV 86.1 fL (80.0-100.0); RBC 4.36 mil/uL (4.20-5.00); RDW-CV 15.1 % (10.5-14.5); WBC 8.5 thou/uL (4.0-11.0)
[2020-12-07 03:33] LABS: CALCIUM 8.9 mg/dL (8.5-10.1); CREATININE 0.7 mg/dL (0.6-1.3); POTASSIUM 4.5 mmol/L (3.5-5.1)
--- NOTE | 2020-12-07 05:17 | NUR ---
PT SLEPT ALL SHIFT. RECEIVED ALL MEDS SCHEDULED. NO REPORTS OF PAIN OR NAUSEA. SHE DID HAVE TWO CONSECUTIVE BLOOD SUGAR READINGS OF 354 AND 317. SLIDING SCALE MOVED TO MODERATE, DR BARKER SENT MESSAGE TO NOTIFY. I GAVE HER 16 UNITS OF INSULIN AT 05:15 THIS MORNING WITH BLOOD SUGAR AT 317. SHE IS STANDBY ASSIST TO THE COMMODE. SISTER HAS BEEN AT BEDSIDE ALL EVENING. BREATHING TREATMENTS GIVEN. SOA ON EXERTION AND WEAKNESS.
[2020-12-07] MEDS ORDERED: DOXYCYCLINE 10100 MG PO (09:52)
[2020-12-07] MEDS ORDERED: PREDNISONE 10 M10 MG PO (09:52)
[2020-12-07 10:41] VITALS: BP 137/71
[2020-12-07 11:27] VITALS: BP 137/71
--- NOTE | 2020-12-07 12:03 | NUR ---
PT DISCHARGED AT 1200 BY WHEELCHAIR TO HOME WITH SISTER. HAS OXYGEN AT HOME. IV OUT. DENIED PAIN. PT STABLE UPON DISCHARGE.
== END 2020-12-07 12:14 | disposition home or self-care (01) | DRG 189 ==
LOC: M.ERS 18:24 → M.ORTHSURG 21:01 → M.TBA-ER 21:01 → M.ORTHSURG 21:43
PROVIDERS: Family Medicine; Physician Assistant; ADMIT Internal Medicine; ATTEND Internal Medicine
DX: J96.21 Acute and chronic respiratory failure with hypoxia (principal); E87.2 Acidosis; J43.9 Emphysema, unspecified; F40.00 Agoraphobia, unspecified; F41.9 Anxiety disorder, unspecified; F31.9 Bipolar disorder, unspecified; F42.9 Obsessive-compulsive disorder, unspecified; F17.210 Nicotine dependence, cigarettes, uncomplicated; I95.9 Hypotension, unspecified; E11.9 Type 2 diabetes mellitus without complications; M79.7 Fibromyalgia; K58.9 Irritable bowel syndrome, unspecified; Z20.822 Contact with and (suspected) exposure to COVID-19; Z79.899 Other long term (current) drug therapy; Z88.2 Allergy status to sulfonamides; Z88.8 Allergy status to other drugs, medicaments and biological substances; Z79.4 Long term (current) use of insulin

== ENCOUNTER 2021-09-06 12:39 | Emergency (ER) | payer OTHER, MEDICAID ==
[~2021-09-06] VITALS: Ht 172.7 cm; Wt 101.2 kg
[~2021-09-06 12:39] MED LIST changes: +ALPRAZOLAM XR2 MG PO; +BUSPIRONE HCL15 MG PO; +DEPAKOTE500 MG PO; +DOXYCYCLINE 10100 MG PO; +JANUMET XR 50-1 EACH PO; +SEROQUEL 50 MG50 M1 PO; +XANAX 0.5 MG0.5 M1 PO
[2021-09-06 12:57] LABS: URINE BLOOD NEGATIVE (Negative); URINE CLARITY CLEAR; URINE COLOR ORANGE; URINE GLUCOSE-RANDOM 1+ (Negative); URINE KETONES TRACE (Negative); URINE LEUKOCYTES-REFLEX NEGATIVE (Negative); URINE PROTEIN 1+ (Negative); URINE UROBILINOGEN >= 8.0 E.U./dl (0.2-1.0)
[2021-09-06 12:58] LABS: URINE BILIRUBIN 2+ (Negative); URINE NITRITE-REFLEX POSITIVE (Negative)
[2021-09-06 12:59] LABS: ICTOTEST (BILI CONFIRMATORY) Positive (Negative)
[2021-09-06 13:05] LABS: SQUAMOUS 0-3 Few /LPF (0-3); URINE WBC-REFLEX 0-5 Rare /HPF (0-5)
[2021-09-06 13:06] LABS: BACTERIA-REFLEX None Seen /HPF (None Seen); CASTS None Seen /LPF (None Seen); CRYSTALS None Seen /LPF (None Seen)
[2021-09-06 13:32] LABS: HEMOGLOBIN 13.7 gm/dL (12.0-15.0); MCH 28.9 pg (26.0-34.0); MCHC 32.7 g/dL (28.0-37.0); MCV 88.4 fL (80.0-100.0); MPV 7.8 fl. (7.2-11.1); RBC 4.75 mil/uL (4.20-5.00); RDW-CV 15.1 % (10.5-14.5); WBC 7.6 thou/uL (4.0-11.0)
[2021-09-06 13:41] LABS: CALCIUM 8.2 mg/dL (8.5-10.1); CREATININE 0.8 mg/dL (0.6-1.3); POTASSIUM 4.2 mmol/L (3.5-5.1)
[2021-09-06] MEDS ORDERED: CEPHALEXIN500 MG PO (13:57)
[2021-09-06 14:05] VITALS: BP 120/68
== END 2021-09-06 14:08 | disposition home or self-care (01) ==
LOC: M.ERS 12:39
PROVIDERS: Physician Assistant
DX: N39.0 Urinary tract infection, site not specified (principal); F41.9 Anxiety disorder, unspecified; J44.9 Chronic obstructive pulmonary disease, unspecified; M19.90 Unspecified osteoarthritis, unspecified site; F17.210 Nicotine dependence, cigarettes, uncomplicated; Z79.899 Other long term (current) drug therapy; Z88.2 Allergy status to sulfonamides; Z88.8 Allergy status to other drugs, medicaments and biological substances